=== PATIENT | male | born 1975 | race Caucasian/White ===

== ENCOUNTER 2018-09-23 13:37 | Inpatient (IN) | payer OTHER ==
[~2018-09-23] VITALS: Ht 172.7 cm; Wt 103.4 kg
[2018-09-23 13:42] VITALS: Ht 172.7 cm; Wt 103.4 kg
[2018-09-23 14:14] LABS: BASOPHIL % 0.7 % (0-2); PLATELET COUNT 138 x10^3mcL (130-400); RED CELL DISTRIBUTION WIDTH 13.1 % (11.5-14.5)
[2018-09-23 14:27] LABS: CALCIUM 9.6 mg/dL (8.5-10.1); CARBON DIOXIDE 25.4 mmol/L (21-32); CHLORIDE SERUM 97 mmol/L (98-107); CREATININE SERUM 1.3 mg/dL (0.7-1.3); GFR1 > 60 mL/min; GLUCOSE SERUM 363 mg/dL (74-106); POTASSIUM SERUM 4.2 mmol/L (3.5-5.1); SODIUM SERUM 133 mmol/L (136-145)
[2018-09-23 14:32] LABS: ALBUMIN 4.2 g/dL (3.4-5.0); ALKALINE PHOSPHATASE 82 U/L (46-116); ALT/SGPT 80 U/L (16-63); AST/SGOT 33 U/L (15-37); BILIRUBIN TOTAL 1.2 mg/dL (0.20-1.00); TOTAL PROTEIN, SERUM 7.6 g/dL (6.4-8.2)
[2018-09-23 14:55] LABS: AMPHETAMINE QUAL UR NONE DETECTED (See below)
[2018-09-23] MEDS ORDERED: METFORMIN HYDR500 M1 PO (15:57)
[2018-09-23] MEDS ORDERED: GLIPIZIDE5 M2 PO (15:58)
[2018-09-23 17:36] VITALS: BP 149/86
[2018-09-23 20:50] VITALS: BP 149/88
[2018-09-24 05:51] VITALS: BP 126/74
[2018-09-24 09:18] VITALS: BP 150/93
[2018-09-24] MEDS ORDERED: ZESTRIL5 MG PO (09:51)
[2018-09-24] MEDS ORDERED: LIPITOR40 MG PO (09:52)
[2018-09-24 12:23] VITALS: BP 137/84
[2018-09-24 13:46] VITALS: BP 137/84
== END 2018-09-24 14:07 | disposition home or self-care (01) | DRG 313 ==
LOC: ED 13:37 → DU 15:41
PROVIDERS: Emergency Medicine; ADMIT Family Medicine
DX: R07.89 Other chest pain (principal); E78.00 Pure hypercholesterolemia, unspecified; E11.65 Type 2 diabetes mellitus with hyperglycemia; I10 Essential (primary) hypertension; E78.5 Hyperlipidemia, unspecified; F32.9 Major depressive disorder, single episode, unspecified; F43.10 Post-traumatic stress disorder, unspecified; Z79.82 Long term (current) use of aspirin; Z79.84 Long term (current) use of oral hypoglycemic drugs; Z79.899 Other long term (current) drug therapy
CPT/HCPCS: 82962; 83880; 85378; C9113; J2270; J7030; Q0092